=== PATIENT | male | born 2000 | race Caucasian/White ===

== ENCOUNTER → 2019-01-21 | Outpatient (CLI) | payer OTHER, SELFPAY ==
[2019-01-21 21:53] LABS: M R Staph aureus DNA By PCR Negative (Negative); Probe Check PASS; Staph aureus DNA By PCR POSITIVE (Negative)
== END | disposition home or self-care (01) ==
PROVIDERS: Family Provider Pediatrics; PCP Pediatrics; Referring Provider Podiatrist; Visit Provider Podiatrist
DX: L60.0 Ingrowing nail (principal)
CPT/HCPCS: 87070; 87077; 87186; 87205; 87640